=== PATIENT | male | born 1985 | race Caucasian/White ===

== ENCOUNTER → 2020-06-12 09:24 | Outpatient (CLI) | payer OTHER, SELFPAY ==
[2020-06-12 10:54] LABS: COVID19 -Nasal RAPID Negative (Negative)
== END ==
PROVIDERS: Visit Provider Nurse Practitioner Family
DX: Z01.812 Encounter for preprocedural laboratory examination (principal); Z20.822 Contact with and (suspected) exposure to COVID-19
CPT/HCPCS: 87635

== ENCOUNTER → 2020-06-14 15:24 | Outpatient (CLI) | payer OTHER, SELFPAY ==
--- NOTE | 2020-06-14 | DI.NM.S_ITS ---
PROCEDURE: NM EXERCISE TREADMILL NON NUC COMPARISON: None. INDICATIONS: Essential (primary) hypertension FINDINGS: The patient exercised for 13 minutes and 26 seconds, reaching 101% of maximum predicted heart rate, 14.8 METs, ROBERT -3%. Appropriate BP response to exercise. No angina during the study. No ST changes with exercise. No ectopy. IMPRESSION: Low risk, normal treadmill ECG only stress test with average exercise tolerance. Dictated by: Nely Demarco MD on 06/14/2020 at 17:20 Approved by: Nely Demarco MD on 06/14/2020 at 17:21
--- NOTE | 2020-06-14 16:02 | PM.TREADMILL ---
Cardiac Stress Test Report Referral & Results Date Patient Seen: 06/14/20 Time Patient Seen: 16:02 Requesting provider: Rafia Lomas Indication: hypertension Rest ECG: sinus rhythm Procedure Note: Standard Yehuda protocol, 13:26, 14.1 METS Good exercise capacity , ROBERT -3% Normal hemodynamic response to exercise No chest pain or anginal symptoms No significant ST changes at peak exercise; no ectopy Impression: Normal exercise stress test Please note: Actual ECG tracings can be found in the PACS system.
== END ==
PROVIDERS: PCP Student in an Organized Health Care Education/Training Program; Referring Provider Student in an Organized Health Care Education/Training Program; Visit Provider Student in an Organized Health Care Education/Training Program
DX: I10 Essential (primary) hypertension (principal)
CPT/HCPCS: 93017

== ENCOUNTER → 2022-10-28 09:01 | Outpatient (CLI) | payer OTHER, SELFPAY ==
[2022-10-28 13:18] LABS: Urine N gonorrhoeae NOT DETECTED
[2022-10-28 13:24] LABS: Urine Chlamydia NOT DETECTED
[2022-10-29 08:10] LABS: Hepatitis B Core AB w/Reflex Negative (Negative)
[2022-10-29 08:45] LABS: RPR Screen Non Reactive (Non Reactive)
[2022-10-30 17:23] LABS: Hepatitis B Surface Antigen NEGATIVE s/c (NEGATIVE)
[2022-10-30 17:39] LABS: HIV 1 & 2 Ab/Ag 4th Gen Combo NEGATIVE (NEGATIVE); Hep C Virus Ab w/Reflex Quant NEGATIVE s/c (NEGATIVE)
== END ==
PROVIDERS: PCP Family Medicine; Referring Provider Obstetrics & Gynecology Reproductive Endocrinology; Visit Provider Obstetrics & Gynecology Reproductive Endocrinology
DX: Z11.3 Encounter for screening for infections with a predominantly sexual mode of transmission (principal); Z11.9 Encounter for screening for infectious and parasitic diseases, unspecified
CPT/HCPCS: 36415; 86592; 86644; 86645; 86704; 86790; 86803; 87340; 87389; 87491; 87591

== ENCOUNTER → 2023-03-27 14:02 | Outpatient (CLI) | payer OTHER, SELFPAY ==
--- NOTE | 2023-03-27 14:04 | DI.RAD.S_ITS ---
PROCEDURE: XR HAND RT MIN 3V INDICATIONS: Right hand injury - 3rd digit TECHNIQUE: 3 views of the hand(s) acquired. COMPARISON: None. FINDINGS: Bones: There is a minimally displaced intra-articular fracture seen involving the proximal aspect of the distal phalanx of the 3rd finger. Soft tissues: No suspicious soft tissue calcifications. IMPRESSION: Third finger fracture. Dictated by: Benny Rodriguez M.D. on 03/27/2023 at 13:30 Approved by: Benny Rodriguez M.D. on 03/27/2023 at 13:32
== END ==
PROVIDERS: PCP Family Medicine; Referring Provider Registered Nurse; Visit Provider Registered Nurse
DX: S62.642A Nondisplaced fracture of proximal phalanx of right middle finger, initial encounter for closed fracture (principal); M79.641 Pain in right hand; X58.XXXA Exposure to other specified factors, initial encounter
CPT/HCPCS: 73130